=== PATIENT | female | born 1990 | race Caucasian/White ===

== ENCOUNTER 2016-12-07 21:26 | Emergency (ER) | payer OTHER ==
--- NOTE | ~2016-12-07 | CR142 ---
[facility] A Service of [facility] & [facility] RADIOLOGY TEXT RESULTS PATIENT: STEVE CARREON LOCATION: CFTX : 89 UNIT #: [id number] AGE: [address]: EB CONNER APRN SEX: F ORDER DR: [id number] [facility] [address] [place], [place] [address] [id number] E MR#: [id number] Acc #: [id number] NAME: STEVE CARREON : 1990 SEX: F STUDY DATE/TIME: 12/07/2016 21:35 UNIT: [facility] ROOM: STUDY DESCRIPTION: CR Hand Min 3 Views Rt Attending Physician: Eb Conner Aprn Ordering Physician: Eb Conner Aprn Primary Care Physician: No Primary Care Physician MEDICAL IMAGING REPORT This report is preliminary unless electronic signature is present EXAM Right hand 3 views HISTORY Hand pain and swelling since yesterday. No injury. FINDINGS 3 views of the right hand demonstrate soft tissue swelling over the dorsum of the hand. Bone alignment is normal. No fracture, joint space narrowing or dislocation. Normal mineralization. IMPRESSION 1. Soft tissue swelling over the dorsum of the hand. 2. Satisfactory bone alignment. No fracture. Dictated by... Mike Johnson M.D. THIS IS AN ELECTRONICALLY VERIFIED REPORT Mike Johnson M.D. at 12/09/2016 12:05 AM KRISHAN/christiano TD: 12/07/2016 23:56 JOB #: [id number] MEDICAL IMAGING REPORT COPY
== END 2016-12-07 22:30 | disposition home or self-care (01) ==
LOC: CFTX 21:26
DX: L03.113 Cellulitis of right upper limb (principal)
CPT/HCPCS: 73130; 99283